=== PATIENT | male | born 2005 | race Caucasian/White ===

== ENCOUNTER 2024-02-12 10:40 | Emergency (ER) | payer OTHER ==
[2024-02-12 10:55] VITALS: TEMP 97
[2024-02-12] MEDS ORDERED: XYLOCAINE 1% HCL 20 ML MDV ONE (11:00)
[2024-02-12] MEDS: XYLOCAINE 1% HCL 20 ML MDV IJ ONE (11:04)
--- NOTE | 2024-02-12 11:37 | XRAY ---
Indication: Laceration. Comparison: None 2 view right forearm demonstrates large anterior soft tissue laceration. No other bony, articular, or soft tissue abnormalities.
[2024-02-12] MEDS ORDERED: KEFZOL 1 GM ONE (12:08)
[2024-02-12] MEDS ORDERED: Sterile H2O 10 ml IJ ONE (12:09)
[2024-02-12] MEDS: KEFZOL 1 GM IM ONE (12:12)
[2024-02-12 12:25] VITALS: BP 116/61; PULSE 72; RESP 16; O2SAT 97
--- NOTE | 2024-02-12 13:03 | ERPHSYRPT ---
- History of Present Illness Time Seen by Provider: 02/12/24 10:59 Source: patient Exam Limitations: no limitations Patient Subjective Stated Complaint: pt was at work today and had pipe broke and lacearated pt right forearm. Triage Nursing Assessment: pt alert, walked in, resp easy, skin w/d/p. pt had coban dressing to right arm, right had purple in color, dressing removed, has large gapping laceration with active bleeding, manual pressure aplied to bleeding, Physician History: 18 years old up-to-date with tetanus right handed dominant male presented in the ER after he was working at [employer] and got a laceration right forearm volar aspect from a sharp metal. Patient reports moderate to severe sharp pain with movements in the wrist/hand in the area of laceration. Tight bandage applied prior to arrival. Patient bandages removed and is able to move his fingers without any limitations. Has 10 cm laceration with exposed flexor muscles and tendon with no obvious laceration. Distal neurovascular intact. Minimal oozing. X-rays are negative for fracture or foreign body. Discussed with Dr. Mckeon orthopedist on-call, recommended laceration repair if patient does not have any fracture and starting him on prophylactic antibiotics. Laceration is repaired with 15 sutures combination of mattress and simple interrupted. Dressing applied. Discussed with patient in detail about wound care and signs symptoms of worsening needing return to ER which he seems understanding. Stable for discharge. Allergies/Adverse Reactions: No Known Drug Allergies Allergy (Unverified 02/12/24 10:50) Hx Tetanus, Diphtheria Vaccination/Date Given: Yes (in high school) Hx Influenza Vaccination/Date Given: No Hx Pneumococcal Vaccination/Date Given: No Immunizations Up to Date: Yes Travel Risk - International Travel Have you traveled outside of the country in past 3 weeks: No - Emerging Infectious Disease Are you exhibiting symptoms associated with any current EIDs: No - Review of Systems Constitutional: No Symptoms Ears, Nose, & Throat: No Symptoms Respiratory: No Symptoms Cardiac: No Symptoms Abdominal/Gastrointestinal: No Symptoms Genitourinary Symptoms: No Symptoms Musculoskeletal: Injury Skin: Skin Lesions Neurological: No Symptoms Hematologic/Lymphatic: No Symptoms Immunological/Allergic: No Symptoms - Past Medical History Pertinent Past Medical History: No - Past Surgical History Past Surgical History: Yes Other Surgical History: arm - Social History Smoking Status: Never smoker Exposure to second hand smoke: No Drug Use: none - Social Determinants of Health Will the patient participate in the screening: Declined to provide - Nursing Vital Signs Nursing Vital Signs: Initial Vital Signs Temperature 97.0 F 02/12/24 10:52 Pulse Rate 56 L 02/12/24 10:52 Respiratory Rate 18 02/12/24 10:52 Blood Pressure 105/68 02/12/24 10:52 O2 Sat by Pulse Oximetry 100 02/12/24 10:52 Pain Scale Pain Intensity 3 - Physical Exam General Appearance: no apparent distress Neck Exam: normal inspection, full range of motion Cardiovascular/Respiratory Exam: normal breath sounds, regular rate/rhythm Shoulder Exam: normal inspection, no evidence of injury, normal ROM Elbow/Forearm Exam: soft tissue tenderness (10 cm laceration forearm right. Exposed muscles and tendon without laceration.'s minimal oozing.) Wrist Exam: normal inspection, non-tender, no evidence of injury, normal ROM Hand Exam: normal inspection, non-tender, no evidence of injury, normal ROM Neuro/Tendon Exam: normal sensation, normal motor functions, normal tendon functions Mental Status Exam: alert, oriented x 3, cooperative Skin Exam: normal color SpO2 Interpretation: normal SpO2: 97 O2 Delivery: Room Air Procedures - Laceration/Wound Repair Right Anterior Volar Arm Time of Procedure: 12:05 Wound Location: Right, lower arm Wound Length (cm): 10 Wound's Depth, Shape: linear Wound Explored: contaminated Irrigated: Yes Hibiclens Prep: Yes Anesthesia: 1% Lidocaine Volume Anesthetic (ccs): 10 Wound Repaired With: sutures Suture Size/Type: 3-0, prolene Number of Sutures: 15 Layer Closure?: No Sterile Dressing Applied?: Yes Ordered Tests: Active Orders 24 hr Category Date Time Status FOREARM Stat Exams 02/12/24 11:17 Completed Medication Summary Discontinued Medications Generic Name Dose Route Start Last Admin Trade Name Freq PRN Reason Stop Dose Admin Cefazolin Sodium 2 g 02/12/24 12:05 02/12/24 12:12 Cefazolin Sodium 1 Gm Vial IM 02/12/24 12:06 2 g STAT ONE Administration Cefazolin Sodium Confirm 02/12/24 12:08 Cefazolin Sodium 1 Gm Vial Administered 02/12/24 12:09 Dose 2 g .ROUTE .STK-MED ONE Lidocaine HCl 10 ml 02/12/24 11:00 02/12/24 11:04 Lidocaine Hcl 1% 20 Ml Mdv 20 Ml Ml IJ 02/12/24 11:01 10 ml STAT ONE Administration Lidocaine HCl Confirm 02/12/24 11:00 Lidocaine Hcl 1% 20 Ml Mdv 20 Ml Ml Administered 02/12/24 11:01 Dose 10 ml .ROUTE .STK-MED ONE Sterile Water Confirm 02/12/24 12:09 Water For Injection,Sterile 10 Ml Vial Administered 02/12/24 12:10 Dose 10 ml IJ .STK-MED ONE - Progress Progress: improved, re-examined Progress Note: 02/12/24 13:05 18 years old up-to-date with tetanus right handed dominant male presented in the ER after he was working at [employer] and got a laceration right forearm volar aspect from a sharp metal. Patient reports moderate to severe sharp pain with movements in the wrist/hand in the area of laceration. Tight bandage applied prior to arrival. Patient bandages removed and is able to move his fingers without any limitations. Has 10 cm laceration with exposed flexor muscles and tendon with no obvious laceration. Distal neurovascular intact. Minimal oozing. X-rays are negative for fracture or foreign body. Discussed with Dr. Mckeon orthopedist on-call, recommended laceration repair if patient does not have any fracture and starting him on prophylactic antibiotics. Laceration is repaired with 15 sutures combination of mattress and simple interrupted. Dressing applied. Discussed with patient in detail about wound care and signs symptoms of worsening needing return to ER which he seems understanding. Stable for discharge. Discussed with Dr.: Other Counseled pt/family regarding: diagnosis, need for follow-up, rad results Medical Desision Making - Discussion of managment Care discussed with:: specialist (Dr. Mckeon orthopedics) Reviewed:: Test results Agreed on:: Treatment plan - Diagnostic Testing Diagnostic test were ordered, analyzed, and reviewed by me: Yes Radiological Interpretation: Reviewed by me - Risk of complications The pt has a mod risk of morbidity or mortality based on: Need for prescription drug management, Need for minor surgical intervention in patient with know risk factors - Departure Departure Disposition: Home Clinical Impression: Forearm laceration Condition: Stable Critical Care Time: No Referrals: DELICIA CLAUDIO MD [Primary Care Provider] - Follow up with PCP 1 day Instructions: Laceration Repair With Stitches (DC) Additional Instructions: Take Tylenol/ibuprofen as needed. Intermittent ice application. Avoid exertional activities. Follow-up with primary care for reevaluation. Suture removal in 2 weeks. Return to ER for increasing pain swelling redness discharge or if develop fever chills/difficulty movements at wrist and fingers etc. Prescriptions: Hydrocodone/Acetaminophen [Hydrocodone-Acetamin 5-325 mg] 1 tab PO Q6HPRN PRN 3 Days #12 tablet MDD 4 PRN Reason: Pain Cephalexin Mh 500 mg [Keflex 500 mg] 500 mg PO TID #21 cap
== END 2024-02-12 13:20 | disposition home or self-care (01) ==
LOC: ED 10:40
DX: S51.811A Laceration without foreign body of right forearm, initial encounter (principal); W31.89XA Contact with other specified machinery, initial encounter
CPT/HCPCS: 12004; 73090; 96372; 99284; J0690